=== PATIENT | female | born 1995 | race African-American/Black ===

== ENCOUNTER 2016-09-27 20:43 | Emergency (ER) | payer MEDICAID ==
[~2016-09-27] VITALS: Ht 162.6 cm; Wt 61.0 kg
[~2016-09-27 20:43] MED LIST: CARB200T; DIVAL250 PO; TEGRETOL; ZONISAMIDE
[2016-09-27] MEDS ORDERED: SODIUM CHLORIDE 0.9% 1,000 ML IV ONE (21:14)
[2016-09-27] MEDS ORDERED: LEVETIRACETAM 500MG PREMIX 100 ML IV ONE (21:15)
[2016-09-27 21:20] VITALS: BP 104/58
[2016-09-27 21:56] LABS: BASOPHILS % 0.2 % (0.0-2.0); EOSINOPHILS % 0.1 % (0.0-5.0); HEMATOCRIT. 36.9 % (36.0-48.0); HEMOGLOBIN. 12.2 g/dL (12.0-16.0); LYMPHOCYTES % 12.8 % (20.0-50.0); MEAN CORPUSCULAR HEMOGLOBIN 28.7 pg (28.0-32.0); MEAN PLATELET VOLUME 8.5 fl (7.4-10.4); MONOCYTES % 7.3 % (2.0-8.0); NEUTROPHILS % 79.6 % (40.0-76.0); PLATELET 208 x1000/uL (130-400); RED BLOOD CELL COUNT 4.24 mill/uL (4.2-5.4); RED CELL DISTRIBUTION WIDTH 13.3 % (11.6-14.6); WHITE BLOOD COUNT 21.6 x1000/uL (4.5-11.0)
[2016-09-27 22:03] LABS: HCG SCREEN NEGATIVE
[2016-09-27 22:18] LABS: ALANINE AMINOTRANSFERASE 27 IU/L (13-61); ALBUMIN 3.7 g/dL (3.4-5.0); ANION GAP 12; CALCIUM 8.4 mg/dL (8.5-10.1); CARBAMAZEPINE 4.5 ug/mL (4-12); CARBON DIOXIDE 28 mEq/L (21-32); CHLORIDE 104 mEq/L (98-107); CREATINE KINASE 145 IU/L (26-192); ETHANOL BLOOD < 10 mg/dL; INDEX HEMOLYSI 1 (1-3); INDEX ICTERIC 1 (1-4); INDEX LIPEMIC 1 (1-3); TROPONIN I < 0.02 ng/mL (0.00-0.04); UREA NITROGEN BLOOD 7 mg/dL (7-21); eGFR > 60 mL/min (>60)
[2016-09-27 22:40] LABS: PHENOBARBITAL < 2.1 ug/mL (15.0-40.0); PHENYTOIN 0.4 ug/mL (10-20); VALPROIC ACID 4.4 ug/mL (50-100)
[2016-09-27 23:16] LABS: THYROID STIMULATING HORMONE 0.31 uIU/mL (0.36-3.74)
[2016-09-27 23:31] LABS: CLARITY URINE CLEAR (CLEAR); COLOR URINE YELLOW (YELLOW); GLUCOSE URINE NEGATIVE (NEGATIVE); KETONES URINE 2+ (NEGATIVE); LEUKOCYTE ESTERASE URINE NEGATIVE (NEGATIVE); NITRITE URINE NEGATIVE (NEGATIVE); OCCULT BLOOD URINE NEGATIVE (NEGATIVE); PROTEIN URINE NEGATIVE (NEGATIVE); SPECIFIC GRAVITY URINE 1.014 (1.005-1.030)
[2016-09-28 00:03] LABS: *AMPHETAMINES SCREEN URINE NEGATIVE (NEGATIVE); *BARBITURATES SCREEN URINE NEGATIVE (NEGATIVE); *BENZODIAZEPINES SCREEN URINE NEGATIVE (NEGATIVE); *COCAINE SCREEN URINE NEGATIVE (NEGATIVE); CANNABINOID URINE SCREEN PRESUMTIVE POSITIVE (NEGATIVE); ECSTASY MDMA SCREEN URINE NEGATIVE (NEGATIVE); METHADONE URINE SCREEN NEGATIVE (NEGATIVE); OPIATES URINE SCREEN NEGATIVE (NEGATIVE); PHENCYCLIDINE URINE SCREEN NEGATIVE (NEGATIVE)
== END 2016-09-28 01:44 | disposition home or self-care (01) ==
LOC: ER 20:44
DX: R56.9 Unspecified convulsions (principal); N39.0 Urinary tract infection, site not specified; F12.10 Cannabis abuse, uncomplicated; F17.200 Nicotine dependence, unspecified, uncomplicated
CPT/HCPCS: 36415; 80053; 80156; 80165; 80184; 80185; 80305; 81003; 82550; 84443; 84484; 84703; 85025; 96365; 99284; 99406; G0482; J1953; J7030; Z7610

== ENCOUNTER 2016-09-29 18:24 | Emergency (ER) | payer MEDICAID ==
[~2016-09-29] VITALS: Ht 157.5 cm; Wt 59.0 kg
[2016-09-29 20:51] VITALS: BP 111/68
== END 2016-09-30 07:26 | disposition home or self-care (01) ==
LOC: ER 18:24
DX: N39.0 Urinary tract infection, site not specified (principal); F12.10 Cannabis abuse, uncomplicated; R56.9 Unspecified convulsions
CPT/HCPCS: 99283

== ENCOUNTER 2016-12-16 01:39 | Emergency (ER) | payer MEDICAID ==
[~2016-12-16] VITALS: Ht 167.6 cm; Wt 59.0 kg
[~2016-12-16 01:39] MED LIST changes: -CARB200T; +CARB200T PO; +FOLI-43 PO; +LAMO100T PO; +OCD PO
[2016-12-16] MEDS ORDERED: IBUPROFEN 600MG TABLET PO ONE (07:00)
[2016-12-16 08:59] VITALS: BP 104/52
== END 2016-12-16 09:33 | disposition home or self-care (01) ==
LOC: ER 01:52
DX: R51 Headache (principal); R56.9 Unspecified convulsions; F17.200 Nicotine dependence, unspecified, uncomplicated
CPT/HCPCS: 81025; 99283

== ENCOUNTER 2017-04-07 04:08 | Inpatient (IN) | payer MEDICAID ==
[~2017-04-07] VITALS: Ht 160 cm; Wt 59.0 kg
[2017-04-07 07:48] LABS: BASOPHILS % 0.7 % (0.0-2.0); EOSINOPHILS % 0.7 % (0.0-5.0); HEMATOCRIT. 38.2 % (36.0-48.0); HEMOGLOBIN. 12.8 g/dL (12.0-16.0); LYMPHOCYTES % 17.4 % (20.0-50.0); MEAN CORPUSCULAR HEMOGLOBIN 29.3 pg (28.0-32.0); MEAN CORPUSCULAR VOLUME 87.8 fL (81.0-99.0); NEUTROPHILS % 71.2 % (40.0-76.0); PLATELET 230 x1000/uL (130-400); RED BLOOD CELL COUNT 4.36 mill/uL (4.2-5.4); RED CELL DISTRIBUTION WIDTH 13.3 % (11.6-14.6)
[2017-04-07 07:59] LABS: HCG SCREEN NEGATIVE
[2017-04-07 08:05] LABS: CARBON DIOXIDE 27 mEq/L (21-32); CHLORIDE 104 mEq/L (98-107)
[2017-04-07 08:07] LABS: CARBAMAZEPINE < 0.5 ug/mL (4-12)
[2017-04-07] MEDS ORDERED: CARBAMAZEPINE 200MG TABLET PO ONE (08:15)
[2017-04-07] MEDS ORDERED: LAMOTRIGINE 100MG TABLET PO SCH (14:45)
[2017-04-07] MEDS ORDERED: LORAZEPAM 2MG/ML CPJ IV ONE (15:00)
[2017-04-07] MEDS ORDERED: MAGNESIUM/ALUMINUM HYDROXIDE/SIMETHICONE 30ML UDC PO PRN (15:45)
[2017-04-07] MEDS ORDERED: NA PHOS,M-B/NA PHOS,DI-BA ENEMA 118ML PR PRN (15:45)
[2017-04-07] MEDS ORDERED: ONDANSETRON HCL 4MG/2ML VIAL IV PRN (15:45)
[2017-04-07] MEDS ORDERED: CLONIDINE 0.1MG TABLET PO PRN (15:45)
[2017-04-07] MEDS ORDERED: LORAZEPAM 2MG/ML CPJ IV PRN (15:45)
[2017-04-07] MEDS ORDERED: NITROGLYCERIN 0.4MG TABLET SL SL PRN (15:45)
[2017-04-07] MEDS ORDERED: IPRATROPIUM/ALBUTEROL 0.5-3(2.5)MG/3ML NEB INH PRN (15:45)
[2017-04-07] MEDS ORDERED: KETOROLAC 15MG/ML VIAL IV PRN (15:45)
[2017-04-07] MEDS ORDERED: DOCUSATE SODIUM 100MG CAPSULE PO PRN (15:45)
[2017-04-07] MEDS ORDERED: ACETAMINOPHEN 325MG TABLET PO PRN (15:45)
[2017-04-07] MEDS ORDERED: DIPHENHYDRAMINE 50MG/ML VIAL IV PRN (15:45)
[2017-04-07 16:37] VITALS: BP 103/57
[2017-04-07 16:40] VITALS: BP 103/103
[2017-04-07 20:00] VITALS: BP 102/69
[2017-04-07] MEDS ORDERED: ZOLPIDEM TARTRATE 5MG TABLET PO PRN (21:00)
[2017-04-07] MEDS: CARBAMAZEPINE 200MG TABLET PO SCH (21:00)
[2017-04-07] MEDS: FAMOTIDINE 20MG/2ML VIAL IV SCH (22:32)
[2017-04-07] MEDS: LAMOTRIGINE 150MG TABLET PO SCH (22:33)
[2017-04-08] VITALS: BP 90/51
[2017-04-08 04:00] VITALS: BP 91/51
[2017-04-08 07:13] LABS: *AMPHETAMINES SCREEN URINE NEGATIVE (NEGATIVE); *BARBITURATES SCREEN URINE NEGATIVE (NEGATIVE); *BENZODIAZEPINES SCREEN URINE NEGATIVE (NEGATIVE); *COCAINE SCREEN URINE NEGATIVE (NEGATIVE); METHADONE URINE SCREEN NEGATIVE (NEGATIVE); OPIATES URINE SCREEN NEGATIVE (NEGATIVE); PHENCYCLIDINE URINE SCREEN NEGATIVE (NEGATIVE)
[2017-04-08 07:46] LABS: CANNABINOID URINE SCREEN PRESUMTIVE POSITIVE (NEGATIVE)
[2017-04-08 08:00] VITALS: BP 99/62
[2017-04-08] MEDS: LAMOTRIGINE 150MG TABLET PO SCH (08:52)
[2017-04-08] MEDS: CARBAMAZEPINE 200MG TABLET PO SCH ×2 (08:52→08:58)
[2017-04-08] MEDS: FAMOTIDINE 20MG/2ML VIAL IV SCH (08:53)
[2017-04-08] MEDS ORDERED: DIVALPROEX SODIUM 500MG ER TABLET PO SCH (09:00)
[2017-04-08 12:00] VITALS: BP 112/67
[2017-04-08 12:22] VITALS: BP 112/67
== END 2017-04-08 12:35 | disposition home or self-care (01) | DRG 53 ==
LOC: ER 04:08 → 5WST 14:38 → ENRESERV 15:20
PROVIDERS: ADMIT Internal Medicine; ATTEND Internal Medicine
DX: G40.909 Epilepsy, unspecified, not intractable, without status epilepticus (principal); F12.10 Cannabis abuse, uncomplicated; Z79.899 Other long term (current) drug therapy; T42.6X5A Adverse effect of other antiepileptic and sedative-hypnotic drugs, initial encounter; R62.50 Unspecified lack of expected normal physiological development in childhood; Z91.14 Patient's other noncompliance with medication regimen; Y92.89 Other specified places as the place of occurrence of the external cause
CPT/HCPCS: 36415; 80053; 80156; 80305; 83036; 84703; 85025; 99285; J2060; J3490

== ENCOUNTER 2017-04-08 22:36 | Emergency (ER) | payer MEDICAID ==
[~2017-04-08] VITALS: Ht 154.9 cm; Wt 50.0 kg
[~2017-04-08 22:36] MED LIST changes: -CARB200T PO
[2017-04-08 23:10] VITALS: BP 118/66
[2017-04-08] MEDS ORDERED: SODIUM CHLORIDE 0.9% 1,000 ML IV ONE (23:11)
[2017-04-08] MEDS ORDERED: LORAZEPAM 2MG/ML CPJ IV ONE (23:15)
[2017-04-08 23:34] LABS: BASOPHILS % 0.6 % (0.0-2.0); EOSINOPHILS % 0.7 % (0.0-5.0); HEMATOCRIT. 39.8 % (36.0-48.0); HEMOGLOBIN. 13.5 g/dL (12.0-16.0); LYMPHOCYTES % 17.3 % (20.0-50.0); MEAN CORPUSCULAR HEMOGLOBIN 29.7 pg (28.0-32.0); MEAN CORPUSCULAR VOLUME 87.7 fL (81.0-99.0); MEAN PLATELET VOLUME 7.7 fl (7.4-10.4); MONOCYTES % 10.7 % (2.0-8.0); NEUTROPHILS % 70.7 % (40.0-76.0); PLATELET 248 x1000/uL (130-400); RED BLOOD CELL COUNT 4.53 mill/uL (4.2-5.4)
[2017-04-08 23:43] LABS: AMMONIA 18 uMol/L (<32)
[2017-04-08 23:50] LABS: CARBAMAZEPINE 2.1 ug/mL (4-12); CARBON DIOXIDE 26 mEq/L (21-32); CHLORIDE 102 mEq/L (98-107); CREATINE KINASE 115 IU/L (26-192); ETHANOL BLOOD < 10 mg/dL; TROPONIN I < 0.02 ng/mL (0.00-0.04)
[2017-04-09] MEDS ORDERED: VALPROIC ACID 250MG CAPSULE PO SCH (01:30)
[2017-04-09] MEDS ORDERED: KCL 20MEQ/100ML PREMIX 100 ML IV NR (01:30)
[2017-04-09] MEDS ORDERED: POTASSIUM BICARB/CIT ACID 25 MEQ TABLET.EFF PO ONE (01:30)
[2017-04-09] MEDS ORDERED: CARBAMAZEPINE 200MG TABLET PO SCH (01:30)
[2017-04-09] MEDS ORDERED: METHYLPREDNISOLONE SOD SUCC 125 MG/2 ML VIAL IV ONE (03:15)
[2017-04-09] MEDS ORDERED: FAMOTIDINE 20MG/2ML VIAL IV ONE (03:15)
[2017-04-09] MEDS ORDERED: DIPHENHYDRAMINE 50MG/ML VIAL IV ONE (03:15)
== END 2017-04-09 04:48 | disposition home or self-care (01) ==
LOC: ER 22:48
DX: T78.40XA Allergy, unspecified, initial encounter (principal); E87.6 Hypokalemia; R56.9 Unspecified convulsions; R22.0 Localized swelling, mass and lump, head; F17.200 Nicotine dependence, unspecified, uncomplicated
CPT/HCPCS: 36415; 70450; 71010; 80053; 80156; 80165; 82140; 82550; 84443; 84484; 85025; 96361; 96374; 99285; G0482; J2060; J3480; J7030

== ENCOUNTER 2018-05-23 13:56 | Emergency (ER) | payer MEDICAID ==
[~2018-05-23] VITALS: Ht 152.4 cm; Wt 55.0 kg
[~2018-05-23 13:56] MED LIST changes: -FOLI-43 PO; -OCD PO; -TEGRETOL; -ZONISAMIDE
[2018-05-23 17:49] LABS: CLARITY URINE CLEAR (CLEAR); COLOR URINE YELLOW (YELLOW); KETONES URINE 1+ (NEGATIVE); LEUKOCYTE ESTERASE URINE 1+ (NEGATIVE); NITRITE URINE NEGATIVE (NEGATIVE); OCCULT BLOOD URINE TRACE (NEGATIVE); PROTEIN URINE 1+ (NEGATIVE); SPECIFIC GRAVITY URINE 1.018 (1.005-1.030)
[2018-05-23 18:15] VITALS: BP 123/61
== END 2018-05-23 18:16 | disposition home or self-care (01) ==
LOC: ER 13:56
DX: N39.0 Urinary tract infection, site not specified (principal); F17.200 Nicotine dependence, unspecified, uncomplicated; Z79.899 Other long term (current) drug therapy
CPT/HCPCS: 81025; 87077; 87186; 99283

== ENCOUNTER 2018-08-27 15:16 | Emergency (ER) | payer MEDICAID ==
[~2018-08-27] VITALS: Ht 154.9 cm; Wt 52.0 kg
[2018-08-27 16:12] VITALS: BP 100/55
== END 2018-08-28 00:03 | disposition left against medical advice (07) ==
LOC: ER 15:16
DX: R10.13 Epigastric pain (principal); Z53.21 Procedure and treatment not carried out due to patient leaving prior to being seen by health care provider

== ENCOUNTER 2018-09-06 02:26 | Emergency (ER) | payer MEDICAID ==
[~2018-09-06] VITALS: Ht 162.6 cm; Wt 77.0 kg
[2018-09-06] MEDS ORDERED: SODIUM CHLORIDE 0.9% 1,000 ML IV ONE (02:44)
[2018-09-06] MEDS ORDERED: MORPHINE SULFATE 4 MG/ML CPJ (NOT FOR IM USE) IV STA (02:44)
[2018-09-06] MEDS ORDERED: ONDANSETRON HCL 4MG/2ML INJ IV STA (02:44)
[2018-09-06] MEDS ORDERED: LEVETIRACETAM 500MG PREMIX 100 ML IV ONE (02:45)
[2018-09-06] MEDS ORDERED: OLANZAPINE 10 MG/VIAL IM ONE (02:45)
[2018-09-06 03:48] LABS: CHLORIDE 107 mEq/L (98-107)
[2018-09-06 03:49] LABS: BASOPHILS % 0.5 % (0.0-2.0); EOSINOPHILS % 1.6 % (0.0-5.0); HEMATOCRIT. 35.6 % (36.0-48.0); HEMOGLOBIN. 11.7 g/dL (12.0-16.0); LYMPHOCYTES % 14.6 % (20.0-50.0); MEAN CORPUSCULAR HEMOGLOBIN 29.2 pg (28.0-32.0); MEAN CORPUSCULAR VOLUME 88.5 fL (81.0-99.0); MEAN PLATELET VOLUME 7.9 fl (7.4-10.4); MONOCYTES % 10.7 % (2.0-8.0); NEUTROPHILS % 72.6 % (40.0-76.0); PLATELET 273 x1000/uL (130-400); RED BLOOD CELL COUNT 4.03 mill/uL (4.2-5.4); RED CELL DISTRIBUTION WIDTH 12.3 % (11.6-14.6)
[2018-09-06 03:52] LABS: ETHANOL BLOOD < 10 mg/dL
[2018-09-06 05:17] LABS: *COCAINE SCREEN URINE NEGATIVE (NEGATIVE); METHADONE URINE SCREEN NEGATIVE (NEGATIVE)
[2018-09-06 05:18] LABS: *AMPHETAMINES SCREEN URINE NEGATIVE (NEGATIVE); *BARBITURATES SCREEN URINE NEGATIVE (NEGATIVE); PHENCYCLIDINE URINE SCREEN NEGATIVE (NEGATIVE)
[2018-09-06 05:39] LABS: *BENZODIAZEPINES SCREEN URINE PRESUMTIVE POSITIVE (NEGATIVE); CANNABINOID URINE SCREEN PRESUMTIVE POSITIVE (NEGATIVE); OPIATES URINE SCREEN PRESUMTIVE POSITIVE (NEGATIVE)
[2018-09-06 09:08] VITALS: BP 106/70
== END 2018-09-06 09:11 | disposition home or self-care (01) ==
LOC: ER 02:41
DX: G40.909 Epilepsy, unspecified, not intractable, without status epilepticus (principal); F12.10 Cannabis abuse, uncomplicated
CPT/HCPCS: 36415; 80053; 80165; 80305; 80320; 85025; 96365; 96372; 96375; 99283; J1953; J2270; J2405; J3490; J7030; Z7610; G0480

== ENCOUNTER 2019-04-18 08:36 | Emergency (ER) | payer MEDICAID ==
[~2019-04-18] VITALS: Ht 162.6 cm; Wt 61.0 kg
[2019-04-18] MEDS ORDERED: KETOROLAC 30MG/ML VIAL IV STA (09:19)
[2019-04-18] MEDS ORDERED: METOCLOPRAMIDE HCL 10MG/2ML VIAL IV ONE (09:30)
[2019-04-18 09:31] LABS: BASOPHILS % 0.5 % (0.0-2.0); HEMOGLOBIN. 12.6 g/dL (12.0-16.0); LYMPHOCYTES % 21.1 % (20.0-50.0); MEAN CORPUSCULAR HEMOGLOBIN 30.4 pg (28.0-32.0); MEAN CORPUSCULAR VOLUME 91.6 fL (81.0-99.0); MEAN PLATELET VOLUME 8.5 fl (7.4-10.4); MONOCYTES % 9.3 % (2.0-8.0); NEUTROPHILS % 68.1 % (40.0-76.0); PLATELET 208 x1000/uL (130-400); RED BLOOD CELL COUNT 4.15 mill/uL (4.2-5.4); RED CELL DISTRIBUTION WIDTH 12.7 % (11.6-14.6)
[2019-04-18 09:36] LABS: CHLORIDE 109 mEq/L (98-107)
[2019-04-18 09:41] LABS: ETHANOL BLOOD < 10 mg/dL
[2019-04-18 09:51] LABS: CARBAMAZEPINE < 0.5 ug/mL (4-12)
[2019-04-18 09:53] LABS: CLARITY URINE CLOUDY (CLEAR); COLOR URINE YELLOW (YELLOW); KETONES URINE TRACE (NEGATIVE); LEUKOCYTE ESTERASE URINE 1+ (NEGATIVE); NITRITE URINE NEGATIVE (NEGATIVE); OCCULT BLOOD URINE NEGATIVE (NEGATIVE); PH URINE 6.5 (4.5-8.0); PROTEIN URINE TRACE (NEGATIVE); SPECIFIC GRAVITY URINE 1.013 (1.005-1.030)
[2019-04-18 10:08] LABS: *AMPHETAMINES SCREEN URINE NEGATIVE (NEGATIVE); *BARBITURATES SCREEN URINE NEGATIVE (NEGATIVE); *COCAINE SCREEN URINE NEGATIVE (NEGATIVE); METHADONE URINE SCREEN NEGATIVE (NEGATIVE); OPIATES URINE SCREEN NEGATIVE (NEGATIVE)
[2019-04-18 10:09] LABS: PHENCYCLIDINE URINE SCREEN NEGATIVE (NEGATIVE)
[2019-04-18 10:26] LABS: *BENZODIAZEPINES SCREEN URINE PRESUMTIVE POSITIVE (NEGATIVE); CANNABINOID URINE SCREEN PRESUMTIVE POSITIVE (NEGATIVE)
[2019-04-18] MEDS ORDERED: CARBAMAZEPINE 100MG TABLET CHEW PO ONE (11:00)
[2019-04-18] MEDS ORDERED: CARBAMAZEPINE 200MG TABLET PO NR (11:30)
[2019-04-18 13:55] VITALS: BP 119/84
== END 2019-04-18 13:56 | disposition home or self-care (01) ==
LOC: ER 08:36
DX: G40.909 Epilepsy, unspecified, not intractable, without status epilepticus (principal); F12.10 Cannabis abuse, uncomplicated
CPT/HCPCS: 36415; 80053; 80156; 80165; 80305; 80320; 81003; 85025; 96374; 96375; 99283; J1885; J2765; Z7610; G0480

== ENCOUNTER 2019-08-28 12:46 | Emergency (ER) | payer MEDICAID ==
[~2019-08-28] VITALS: Ht 165.1 cm; Wt 60.0 kg
[~2019-08-28 12:46] MED LIST changes: -LAMO100T PO; +LAMO100T16 PO
[2019-08-28] MEDS ORDERED: PHENYTOIN SODIUM 500 MG in SODIUM CHLORIDE 0.9% 100 ML IV ONE (13:45)
[2019-08-28 13:51] LABS: BASOPHILS % 0.8 % (0.0-2.0); EOSINOPHILS % 0.2 % (0.0-5.0); HEMATOCRIT. 40.7 % (36.0-48.0); HEMOGLOBIN. 13.8 g/dL (12.0-16.0); LYMPHOCYTES % 10.2 % (20.0-50.0); MEAN CORPUSCULAR HEMOGLOBIN 30.7 pg (28.0-32.0); MEAN CORPUSCULAR VOLUME 90.7 fL (81.0-99.0); MEAN PLATELET VOLUME 8.7 fl (7.4-10.4); MONOCYTES % 5.5 % (2.0-8.0); NEUTROPHILS % 83.3 % (40.0-76.0); PLATELET 187 x1000/uL (130-400); RED BLOOD CELL COUNT 4.49 mill/uL (4.2-5.4); RED CELL DISTRIBUTION WIDTH 12.4 % (11.6-14.6)
[2019-08-28 13:58] LABS: CHLORIDE 107 mEq/L (98-107)
[2019-08-28 14:17] LABS: ETHANOL BLOOD < 10 mg/dL
[2019-08-28] MEDS ORDERED: PHENYTOIN SODIUM EXTENDED 100MG CAPSULE PO ONE (16:45)
[2019-08-28 19:25] VITALS: BP 110/69
== END 2019-08-28 19:25 | disposition home or self-care (01) ==
LOC: ER 13:22
DX: R56.9 Unspecified convulsions (principal); I10 Essential (primary) hypertension; F12.10 Cannabis abuse, uncomplicated
CPT/HCPCS: 36415; 70450; 80053; 80185; 80320; 85025; 93005; 96365; 99285; J1165; J7050; G0480

== ENCOUNTER 2019-12-30 02:49 | Emergency (ER) | payer MEDICAID ==
[~2019-12-30] VITALS: Ht 152.4 cm; Wt 53.0 kg
[~2019-12-30 02:49] MED LIST changes: +PHEN100C4 PO
[2019-12-30] MEDS ORDERED: DIPHENHYDRAMINE 25MG CAPSULE PO ONE (03:30)
[2019-12-30] MEDS ORDERED: KETOROLAC 60MG/2ML VIAL IM ONE (05:00)
[2019-12-30 05:14] VITALS: BP 100/50
== END 2019-12-30 05:22 | disposition home or self-care (01) ==
LOC: ER 02:49
DX: R07.89 Other chest pain (principal); R56.9 Unspecified convulsions; Z98.890 Other specified postprocedural states; Z79.899 Other long term (current) drug therapy
CPT/HCPCS: 71045; 81025; 93005; 96372; 99283; J1885; Q0163

== ENCOUNTER 2020-01-04 02:00 | Emergency (ER) | payer MEDICAID ==
[~2020-01-04] VITALS: Ht 160 cm; Wt 53.0 kg
[2020-01-04] MEDS ORDERED: MAGNESIUM/ALUMINUM HYDROXIDE/SIMETHICONE 30ML UDC PO STA (03:07)
[2020-01-04] MEDS ORDERED: SODIUM CHLORIDE 0.9% 1,000 ML IV ONE (03:07)
[2020-01-04] MEDS ORDERED: ONDANSETRON HCL 4MG/2ML INJ IV STA (03:07)
[2020-01-04] MEDS ORDERED: KETOROLAC 30MG/ML VIAL IV STA (03:07)
[2020-01-04 04:09] LABS: CHLORIDE 105 mEq/L (98-107)
[2020-01-04 04:37] LABS: EOSINOPHILS % 3.5 % (0.0-5.0); HEMATOCRIT. 35.4 % (36.0-48.0); HEMOGLOBIN. 12.1 g/dL (12.0-16.0); LYMPHOCYTES % 39.2 % (20.0-50.0); MEAN CORPUSCULAR HEMOGLOBIN 31.9 pg (28.0-32.0); MEAN CORPUSCULAR VOLUME 93.6 fL (81.0-99.0); MEAN PLATELET VOLUME 9.4 fl (7.4-10.4); NEUTROPHILS % 42.3 % (40.0-76.0); PLATELET 156 x1000/uL (130-400); RED BLOOD CELL COUNT 3.79 mill/uL (4.2-5.4); RED CELL DISTRIBUTION WIDTH 12.8 % (11.6-14.6)
[2020-01-04 05:00] VITALS: BP 95/56
== END 2020-01-04 05:41 | disposition home or self-care (01) ==
LOC: ER 02:00
DX: K80.20 Calculus of gallbladder without cholecystitis without obstruction (principal); F17.290 Nicotine dependence, other tobacco product, uncomplicated; R10.13 Epigastric pain
CPT/HCPCS: 36415; 76705; 80053; 83690; 85025; 96374; 96375; 99284; J1885; J2405; J7030

== ENCOUNTER 2020-01-24 06:23 | Emergency (ER) | payer MEDICAID ==
[~2020-01-24] VITALS: Ht 162.6 cm; Wt 54.0 kg
[2020-01-24] MEDS ORDERED: ACETAMINOPHEN 325MG TABLET PO STA (07:36)
[2020-01-24] MEDS ORDERED: SODIUM CHLORIDE 0.9% 1,000 ML IV ONE (07:36)
[2020-01-24 07:58] LABS: BASOPHILS % 0.9 % (0.0-2.0); HEMATOCRIT. 40.5 % (36.0-48.0); HEMOGLOBIN. 13.7 g/dL (12.0-16.0); LYMPHOCYTES % 37.3 % (20.0-50.0); MEAN CORPUSCULAR HEMOGLOBIN 31.2 pg (28.0-32.0); MEAN CORPUSCULAR VOLUME 92.1 fL (81.0-99.0); MEAN PLATELET VOLUME 9.2 fl (7.4-10.4); MONOCYTES % 9.5 % (2.0-8.0); NEUTROPHILS % 50.3 % (40.0-76.0); PLATELET 168 x1000/uL (130-400); RED CELL DISTRIBUTION WIDTH 12.8 % (11.6-14.6)
[2020-01-24 08:00] LABS: CHLORIDE 107 mEq/L (98-107)
[2020-01-24 08:55] VITALS: BP 117/68
[2020-01-24] MEDS ORDERED: ONDANSETRON HCL 4MG/2ML INJ IV ONE (09:00)
[2020-01-24 09:14] LABS: HCG SCREEN NEGATIVE
[2020-01-24] MEDS ORDERED: ONDANSETRON 4MG ODT PO ONE (09:15)
== END 2020-01-24 09:22 | disposition home or self-care (01) ==
LOC: ER 06:23
DX: G40.909 Epilepsy, unspecified, not intractable, without status epilepticus (principal); Z88.8 Allergy status to other drugs, medicaments and biological substances
CPT/HCPCS: 36415; 80053; 80165; 80185; 84703; 85025; 93005; 99284; J7030; Q0162

== ENCOUNTER 2021-05-28 18:01 | Emergency (ER) | payer MEDICAID ==
[~2021-05-28] VITALS: Ht 165.1 cm; Wt 61.0 kg
[2021-05-28] MEDS ORDERED: LORAZEPAM 0.5MG TABLET PO ONE (18:45)
[2021-05-28 19:46] LABS: BASOPHILS % 0.8 % (0.0-2.0); EOSINOPHILS % 1.3 % (0.0-5.0); HEMATOCRIT. 38.4 % (36.0-48.0); HEMOGLOBIN. 12.7 g/dL (12.0-16.0); LYMPHOCYTES % 23.9 % (20.0-50.0); MEAN CORPUSCULAR HEMOGLOBIN 30.4 pg (28.0-32.0); MEAN PLATELET VOLUME 8.1 fl (7.4-10.4); MONOCYTES % 10.5 % (2.0-8.0); NEUTROPHILS % 63.5 % (40.0-76.0); PLATELET 184 x1000/uL (130-400); RED BLOOD CELL COUNT 4.17 mill/uL (4.2-5.4); RED CELL DISTRIBUTION WIDTH 13.8 % (11.6-14.6)
[2021-05-28 19:53] LABS: CHLORIDE 107 mEq/L (98-107)
[2021-05-28 20:01] LABS: HCG SCREEN NEGATIVE
[2021-05-28 21:30] VITALS: BP 110/65
[2021-05-28] MEDS ORDERED: DIVA500T3 MT (21:42)
[2021-05-28] MEDS ORDERED: LAMO100T16 MT (21:42)
== END 2021-05-28 21:50 | disposition home or self-care (01) ==
LOC: ER 18:01
DX: G40.909 Epilepsy, unspecified, not intractable, without status epilepticus (principal); Z88.8 Allergy status to other drugs, medicaments and biological substances
CPT/HCPCS: 36415; 80053; 80165; 84703; 85025; 99283

== ENCOUNTER 2021-06-15 02:19 | Emergency (ER) | payer MEDICAID ==
[~2021-06-15] VITALS: Ht 167.6 cm; Wt 65.0 kg
[~2021-06-15 02:19] MED LIST changes: +DIVA500T3 MT; +LAMO100T16 MT
[2021-06-15] MEDS ORDERED: IBUPROFEN 400MG TABLET PO ONE (03:15)
[2021-06-15 03:22] LABS: BASOPHILS % 0.6 % (0.0-2.0); EOSINOPHILS % 1.8 % (0.0-5.0); HEMATOCRIT. 37.5 % (36.0-48.0); HEMOGLOBIN. 12.3 g/dL (12.0-16.0); LYMPHOCYTES % 28.9 % (20.0-50.0); MEAN CORPUSCULAR HEMOGLOBIN 30.5 pg (28.0-32.0); MEAN CORPUSCULAR VOLUME 92.8 fL (81.0-99.0); MEAN PLATELET VOLUME 8.3 fl (7.4-10.4); MONOCYTES % 10.5 % (2.0-8.0); NEUTROPHILS % 58.2 % (40.0-76.0); PLATELET 179 x1000/uL (130-400); RED BLOOD CELL COUNT 4.04 mill/uL (4.2-5.4); RED CELL DISTRIBUTION WIDTH 13.6 % (11.6-14.6)
[2021-06-15 03:29] LABS: CHLORIDE 104 mEq/L (98-107)
[2021-06-15 05:00] VITALS: BP 110/60
== END 2021-06-15 05:05 | disposition home or self-care (01) ==
LOC: ER 02:19
DX: G40.909 Epilepsy, unspecified, not intractable, without status epilepticus (principal); I10 Essential (primary) hypertension; M79.18 Myalgia, other site
CPT/HCPCS: 36415; 80053; 80165; 85025; 99283

== ENCOUNTER 2021-07-11 02:01 | Emergency (ER) | payer MEDICAID ==
[~2021-07-11] VITALS: Ht 170.2 cm; Wt 651.0 kg
[2021-07-11 02:45] VITALS: BP 130/65
[2021-07-11 03:09] LABS: BASOPHILS % 0.7 % (0.0-2.0); EOSINOPHILS % 0.4 % (0.0-5.0); HEMATOCRIT. 35.1 % (36.0-48.0); LYMPHOCYTES % 14.3 % (20.0-50.0); MEAN CORPUSCULAR HEMOGLOBIN 30.8 pg (28.0-32.0); MEAN CORPUSCULAR VOLUME 89.7 fL (81.0-99.0); MEAN PLATELET VOLUME 8.3 fl (7.4-10.4); MONOCYTES % 11.8 % (2.0-8.0); NEUTROPHILS % 72.8 % (40.0-76.0); PLATELET 198 x1000/uL (130-400); RED BLOOD CELL COUNT 3.91 mill/uL (4.2-5.4)
[2021-07-11 03:17] LABS: CHLORIDE 104 mEq/L (98-107)
[2021-07-11 03:21] LABS: ETHANOL BLOOD < 10 mg/dL
[2021-07-11 07:13] LABS: *AMPHETAMINES SCREEN URINE NEGATIVE (NEGATIVE); *BARBITURATES SCREEN URINE NEGATIVE (NEGATIVE); *BENZODIAZEPINES SCREEN URINE NEGATIVE (NEGATIVE); *COCAINE SCREEN URINE NEGATIVE (NEGATIVE); METHADONE URINE SCREEN NEGATIVE (NEGATIVE); OPIATES URINE SCREEN NEGATIVE (NEGATIVE); PHENCYCLIDINE URINE SCREEN NEGATIVE (NEGATIVE)
[2021-07-11 07:27] LABS: CANNABINOID URINE SCREEN PRESUMTIVE POSITIVE (NEGATIVE)
== END 2021-07-11 06:15 | disposition home or self-care (01) ==
LOC: ER 02:38
DX: F12.10 Cannabis abuse, uncomplicated (principal); R00.2 Palpitations; G40.909 Epilepsy, unspecified, not intractable, without status epilepticus; Z20.822 Contact with and (suspected) exposure to COVID-19; Z88.8 Allergy status to other drugs, medicaments and biological substances
CPT/HCPCS: 36415; 71045; 80053; 80305; 80320; 83880; 84484; 85025; 87426; 93005; 99285; G0480

== ENCOUNTER 2021-08-23 19:08 | Emergency (ER) | payer MEDICAID ==
[~2021-08-23] VITALS: Ht 160 cm; Wt 52.0 kg
[2021-08-23 19:48] LABS: CLARITY URINE CLEAR (CLEAR); COLOR URINE YELLOW (YELLOW); KETONES URINE NEGATIVE (NEGATIVE); LEUKOCYTE ESTERASE URINE NEGATIVE (NEGATIVE); NITRITE URINE NEGATIVE (NEGATIVE); OCCULT BLOOD URINE 1+ (NEGATIVE); PH URINE 6.5 (4.5-8.0); PROTEIN URINE NEGATIVE (NEGATIVE); SPECIFIC GRAVITY URINE 1.008 (1.005-1.030); UROBILINOGEN URINE 0.2 E.U./dL (0.2-1.0)
[2021-08-23 20:00] LABS: *BARBITURATES SCREEN URINE NEGATIVE (NEGATIVE); *BENZODIAZEPINES SCREEN URINE NEGATIVE (NEGATIVE); *COCAINE SCREEN URINE NEGATIVE (NEGATIVE)
[2021-08-23 20:01] LABS: METHADONE URINE SCREEN NEGATIVE (NEGATIVE); OPIATES URINE SCREEN NEGATIVE (NEGATIVE); PHENCYCLIDINE URINE SCREEN NEGATIVE (NEGATIVE)
[2021-08-23 20:16] LABS: *AMPHETAMINES SCREEN URINE PRESUMTIVE POSITIVE (NEGATIVE); CANNABINOID URINE SCREEN PRESUMTIVE POSITIVE (NEGATIVE)
[2021-08-23 20:56] LABS: BASOPHILS % 0.4 % (0.0-2.0); EOSINOPHILS % 1.8 % (0.0-5.0); HEMATOCRIT. 34.8 % (36.0-48.0); HEMOGLOBIN. 11.6 g/dL (12.0-16.0); LYMPHOCYTES % 14.4 % (20.0-50.0); MEAN CORPUSCULAR VOLUME 90.3 fL (81.0-99.0); MEAN PLATELET VOLUME 8.3 fl (7.4-10.4); MONOCYTES % 11.8 % (2.0-8.0); NEUTROPHILS % 71.6 % (40.0-76.0); PLATELET 176 x1000/uL (130-400); RED BLOOD CELL COUNT 3.86 mill/uL (4.2-5.4); RED CELL DISTRIBUTION WIDTH 13.1 % (11.6-14.6)
[2021-08-23 21:03] LABS: CHLORIDE 105 mEq/L (98-107)
[2021-08-23 21:06] LABS: ETHANOL BLOOD < 10 mg/dL
[2021-08-23] MEDS ORDERED: LAMOTRIGINE 25MG TABLET PO SCH (22:30)
[2021-08-23 22:50] VITALS: BP 110/66
== END 2021-08-23 23:30 | disposition home or self-care (01) ==
LOC: ER 19:08
DX: R56.9 Unspecified convulsions (principal); F12.10 Cannabis abuse, uncomplicated; F15.10 Other stimulant abuse, uncomplicated; Z79.899 Other long term (current) drug therapy
CPT/HCPCS: 36415; 71045; 80053; 80305; 80320; 81003; 82542; 84484; 85025; 93005; 99285; G0480

== ENCOUNTER 2021-09-17 00:28 | Emergency (ER) | payer MEDICAID ==
[~2021-09-17] VITALS: Ht 160 cm; Wt 60.0 kg
[2021-09-17 01:26] VITALS: BP 112/68
== END 2021-09-17 01:27 | disposition home or self-care (01) ==
LOC: ER 00:28
DX: F12.10 Cannabis abuse, uncomplicated (principal); G40.909 Epilepsy, unspecified, not intractable, without status epilepticus; Z88.8 Allergy status to other drugs, medicaments and biological substances
CPT/HCPCS: 93005; 99283

== ENCOUNTER 2021-10-16 23:32 | Emergency (ER) | payer MEDICAID ==
[~2021-10-16] VITALS: Ht 154.9 cm; Wt 55.0 kg
[2021-10-17] MEDS ORDERED: VISCOUS LIDOCAINE 2% 15 ML UDC PO STA (00:03)
[2021-10-17] MEDS ORDERED: MAGNESIUM/ALUMINUM HYDROXIDE/SIMETHICONE 30ML UDC PO STA (00:03)
[2021-10-17 00:31] LABS: BASOPHILS % 0.6 % (0.0-2.0); EOSINOPHILS % 2.3 % (0.0-5.0); HEMATOCRIT. 34.6 % (36.0-48.0); HEMOGLOBIN. 11.6 g/dL (12.0-16.0); LYMPHOCYTES % 29.5 % (20.0-50.0); MEAN CORPUSCULAR HEMOGLOBIN 30.2 pg (28.0-32.0); MEAN CORPUSCULAR VOLUME 90.3 fL (81.0-99.0); MEAN PLATELET VOLUME 8.3 fl (7.4-10.4); MONOCYTES % 12.7 % (2.0-8.0); NEUTROPHILS % 54.9 % (40.0-76.0); PLATELET 149 x1000/uL (130-400); RED BLOOD CELL COUNT 3.83 mill/uL (4.2-5.4); RED CELL DISTRIBUTION WIDTH 13.4 % (11.6-14.6)
[2021-10-17 00:40] LABS: CHLORIDE 105 mEq/L (98-107)
[2021-10-17 00:59] LABS: CLARITY URINE CLEAR (CLEAR); COLOR URINE YELLOW (YELLOW); KETONES URINE NEGATIVE (NEGATIVE); LEUKOCYTE ESTERASE URINE 1+ (NEGATIVE); NITRITE URINE NEGATIVE (NEGATIVE); OCCULT BLOOD URINE NEGATIVE (NEGATIVE); PH URINE 6.5 (4.5-8.0); PROTEIN URINE NEGATIVE (NEGATIVE); SPECIFIC GRAVITY URINE 1.017 (1.005-1.030); UROBILINOGEN URINE 0.2 E.U./dL (0.2-1.0)
[2021-10-17 01:09] LABS: HCG SCREEN NEGATIVE
[2021-10-17] MEDS ORDERED: METR500T MT (02:17)
[2021-10-17] MEDS ORDERED: FAMO40TA70 MT (02:17)
[2021-10-17 02:40] VITALS: BP 110/68
== END 2021-10-17 02:41 | disposition home or self-care (01) ==
LOC: ER 23:32
DX: K29.00 Acute gastritis without bleeding (principal); A59.9 Trichomoniasis, unspecified; G40.909 Epilepsy, unspecified, not intractable, without status epilepticus
CPT/HCPCS: 36415; 80053; 81003; 84703; 85025; 93005; 99284

== ENCOUNTER 2021-11-03 00:57 | Emergency (ER) | payer MEDICAID ==
[~2021-11-03] VITALS: Ht 154.9 cm; Wt 62.0 kg
[~2021-11-03 00:57] MED LIST changes: +FAMO40TA70 MT; +METR500T MT
[2021-11-03] MEDS ORDERED: MORPHINE SULFATE 4 MG/ML CPJ (NOT FOR IM USE) IV STA (01:51)
[2021-11-03] MEDS ORDERED: ONDANSETRON HCL 4MG/2ML INJ IV STA (01:51)
[2021-11-03 02:24] LABS: CHLORIDE 103 mEq/L (98-107)
[2021-11-03 02:25] LABS: HCG SCREEN NEGATIVE
[2021-11-03 02:26] LABS: BASOPHILS % 0.5 % (0.0-2.0); EOSINOPHILS % 2.4 % (0.0-5.0); HEMATOCRIT. 40.8 % (36.0-48.0); HEMOGLOBIN. 13.9 g/dL (12.0-16.0); LYMPHOCYTES % 36.8 % (20.0-50.0); MEAN CORPUSCULAR HEMOGLOBIN 30.2 pg (28.0-32.0); MEAN PLATELET VOLUME 8.8 fl (7.4-10.4); NEUTROPHILS % 50.3 % (40.0-76.0); PLATELET 156 x1000/uL (130-400); RED BLOOD CELL COUNT 4.59 mill/uL (4.2-5.4); RED CELL DISTRIBUTION WIDTH 14.5 % (11.6-14.6)
[2021-11-03 06:53] LABS: CLARITY URINE CLEAR (CLEAR); COLOR URINE YELLOW (YELLOW); KETONES URINE TRACE (NEGATIVE); LEUKOCYTE ESTERASE URINE NEGATIVE (NEGATIVE); NITRITE URINE NEGATIVE (NEGATIVE); OCCULT BLOOD URINE 2+ (NEGATIVE); PH URINE 7.5 (4.5-8.0); PROTEIN URINE NEGATIVE (NEGATIVE); SPECIFIC GRAVITY URINE 1.014 (1.005-1.030); UROBILINOGEN URINE 0.2 E.U./dL (0.2-1.0)
[2021-11-03] MEDS ORDERED: FAMO-135 MT (11:54)
[2021-11-03 12:40] VITALS: BP 110/68
== END 2021-11-03 12:50 | disposition home or self-care (01) ==
LOC: ER 00:57
DX: R10.13 Epigastric pain (principal); Z79.899 Other long term (current) drug therapy; Z86.59 Personal history of other mental and behavioral disorders
CPT/HCPCS: 36415; 76700; 80053; 81003; 83690; 84703; 85025; 96374; 96375; 99284; J2270; J2405; Z7610

== ENCOUNTER 2021-12-26 11:08 | Emergency (ER) | payer MEDICAID ==
[~2021-12-26] VITALS: Ht 152.4 cm; Wt 54.0 kg
[~2021-12-26 11:08] MED LIST changes: +FAMO-135 MT
[2021-12-26] MEDS ORDERED: MAGNESIUM/ALUMINUM HYDROXIDE/SIMETHICONE 30ML UDC PO STA (11:28)
[2021-12-26] MEDS ORDERED: ONDANSETRON 4MG ODT PO ONE (12:15)
[2021-12-26 12:41] LABS: CLARITY URINE CLEAR (CLEAR); COLOR URINE YELLOW (YELLOW); KETONES URINE NEGATIVE (NEGATIVE); LEUKOCYTE ESTERASE URINE NEGATIVE (NEGATIVE); NITRITE URINE NEGATIVE (NEGATIVE); OCCULT BLOOD URINE NEGATIVE (NEGATIVE); PH URINE 8.5 (4.5-8.0); PROTEIN URINE NEGATIVE (NEGATIVE); SPECIFIC GRAVITY URINE 1.017 (1.005-1.030)
[2021-12-26 12:50] LABS: BASOPHILS % 0.4 % (0.0-2.0); HEMATOCRIT. 37.7 % (36.0-48.0); HEMOGLOBIN. 12.7 g/dL (12.0-16.0); LYMPHOCYTES % 11.6 % (20.0-50.0); MEAN CORPUSCULAR HEMOGLOBIN 30.8 pg (28.0-32.0); MEAN CORPUSCULAR VOLUME 91.6 fL (81.0-99.0); MEAN PLATELET VOLUME 8.6 fl (7.4-10.4); MONOCYTES % 10.3 % (2.0-8.0); NEUTROPHILS % 76.7 % (40.0-76.0); PLATELET 142 x1000/uL (130-400); RED BLOOD CELL COUNT 4.12 mill/uL (4.2-5.4); RED CELL DISTRIBUTION WIDTH 15.3 % (11.6-14.6)
[2021-12-26 12:57] LABS: CHLORIDE 101 mEq/L (98-107)
[2021-12-26 13:05] LABS: ETHANOL BLOOD < 10 mg/dL
[2021-12-26 13:06] LABS: HCG SCREEN NEGATIVE
[2021-12-26] MEDS ORDERED: ONDA4TAB50 MT (13:08)
[2021-12-26] MEDS ORDERED: OMEP40CA20 MT (13:08)
[2021-12-26 13:16] VITALS: BP 126/69
[2021-12-26 13:21] LABS: *AMPHETAMINES SCREEN URINE NEGATIVE (NEGATIVE); *BARBITURATES SCREEN URINE NEGATIVE (NEGATIVE); *BENZODIAZEPINES SCREEN URINE NEGATIVE (NEGATIVE); *COCAINE SCREEN URINE NEGATIVE (NEGATIVE); METHADONE URINE SCREEN NEGATIVE (NEGATIVE); OPIATES URINE SCREEN NEGATIVE (NEGATIVE); PHENCYCLIDINE URINE SCREEN NEGATIVE (NEGATIVE)
[2021-12-26 13:22] LABS: CANNABINOID URINE SCREEN PRESUMTIVE POSITIVE (NEGATIVE)
== END 2021-12-26 13:17 | disposition home or self-care (01) ==
LOC: ER 11:31
DX: R10.33 Periumbilical pain (principal); G40.909 Epilepsy, unspecified, not intractable, without status epilepticus
CPT/HCPCS: 36415; 80053; 80305; 80320; 81003; 83690; 84703; 85025; 93005; 99284; Q0162; G0480

== ENCOUNTER 2022-01-01 00:21 | Emergency (ER) | payer MEDICAID ==
[~2022-01-01] VITALS: Ht 162.6 cm; Wt 60.0 kg
[~2022-01-01 00:21] MED LIST changes: +OMEP40CA20 MT; +ONDA4TAB50 MT
[2022-01-01] MEDS ORDERED: MAGNESIUM/ALUMINUM HYDROXIDE/SIMETHICONE 30ML UDC PO ONE (00:45)
[2022-01-01] MEDS ORDERED: DICYCLOMINE 10 MG/5 ML ORAL SYR PO ONE (00:45)
[2022-01-01] MEDS ORDERED: VISCOUS LIDOCAINE 2% 15 ML UDC PO ONE (00:45)
[2022-01-01 00:58] LABS: BASOPHILS % 0.9 % (0.0-2.0); EOSINOPHILS % 2.2 % (0.0-5.0); HEMATOCRIT. 34.7 % (36.0-48.0); HEMOGLOBIN. 11.6 g/dL (12.0-16.0); MEAN CORPUSCULAR HEMOGLOBIN 30.6 pg (28.0-32.0); MEAN CORPUSCULAR VOLUME 91.9 fL (81.0-99.0); MEAN PLATELET VOLUME 8.3 fl (7.4-10.4); MONOCYTES % 14.4 % (2.0-8.0); NEUTROPHILS % 43.5 % (40.0-76.0); PLATELET 124 x1000/uL (130-400); RED BLOOD CELL COUNT 3.78 mill/uL (4.2-5.4); RED CELL DISTRIBUTION WIDTH 15.3 % (11.6-14.6)
[2022-01-01 01:04] LABS: CHLORIDE 103 mEq/L (98-107)
[2022-01-01 01:13] LABS: ETHANOL BLOOD < 10 mg/dL
[2022-01-01 02:02] LABS: CLARITY URINE CLEAR (CLEAR); COLOR URINE YELLOW (YELLOW); KETONES URINE NEGATIVE (NEGATIVE); LEUKOCYTE ESTERASE URINE NEGATIVE (NEGATIVE); NITRITE URINE NEGATIVE (NEGATIVE); OCCULT BLOOD URINE NEGATIVE (NEGATIVE); PROTEIN URINE NEGATIVE (NEGATIVE); SPECIFIC GRAVITY URINE 1.017 (1.005-1.030)
[2022-01-01 02:15] LABS: *AMPHETAMINES SCREEN URINE NEGATIVE (NEGATIVE); *BARBITURATES SCREEN URINE NEGATIVE (NEGATIVE); *BENZODIAZEPINES SCREEN URINE NEGATIVE (NEGATIVE); *COCAINE SCREEN URINE NEGATIVE (NEGATIVE); METHADONE URINE SCREEN NEGATIVE (NEGATIVE); OPIATES URINE SCREEN NEGATIVE (NEGATIVE); PHENCYCLIDINE URINE SCREEN NEGATIVE (NEGATIVE)
[2022-01-01 02:20] LABS: CANNABINOID URINE SCREEN PRESUMTIVE POSITIVE (NEGATIVE)
[2022-01-01 02:55] VITALS: BP 130/80
== END 2022-01-01 02:58 | disposition home or self-care (01) ==
LOC: ER 00:21
DX: G89.29 Other chronic pain (principal); R10.9 Unspecified abdominal pain; R56.9 Unspecified convulsions; F12.90 Cannabis use, unspecified, uncomplicated
CPT/HCPCS: 36415; 80053; 80305; 80320; 81003; 81025; 82962; 85025; 99283; 99284; G0480

== ENCOUNTER 2022-01-12 01:57 | Emergency (ER) | payer MEDICAID ==
[~2022-01-12] VITALS: Ht 162.6 cm; Wt 59.0 kg
[2022-01-12] MEDS ORDERED: LAMOTRIGINE 100MG TABLET PO STA (04:23)
[2022-01-12] MEDS ORDERED: DIVALPROEX SODIUM 250MG ER TABLET PO ONE (04:30)
[2022-01-12 05:30] VITALS: BP 111/74
[2022-01-12] MEDS ORDERED: NITR-87 MT (09:22)
== END 2022-01-12 05:38 | disposition home or self-care (01) ==
LOC: ER 01:57
DX: R56.9 Unspecified convulsions (principal); Z79.899 Other long term (current) drug therapy
CPT/HCPCS: 99283; Z7610

== ENCOUNTER 2022-01-12 05:49 | Emergency (ER) | payer MEDICAID ==
[~2022-01-12] VITALS: Ht 152.4 cm; Wt 54.0 kg
[2022-01-12 06:00] VITALS: BP 133/82
[2022-01-12 08:44] LABS: CLARITY URINE CLEAR (CLEAR); COLOR URINE DARK YELLOW (YELLOW); KETONES URINE 2+ (NEGATIVE); LEUKOCYTE ESTERASE URINE TRACE (NEGATIVE); NITRITE URINE NEGATIVE (NEGATIVE); OCCULT BLOOD URINE NEGATIVE (NEGATIVE); PROTEIN URINE 1+ (NEGATIVE); SPECIFIC GRAVITY URINE 1.024 (1.005-1.030)
[2022-01-12] MEDS ORDERED: NITR-87 MT (09:22)
== END 2022-01-12 09:40 | disposition home or self-care (01) ==
LOC: ER 05:49
DX: N39.0 Urinary tract infection, site not specified (principal); F17.200 Nicotine dependence, unspecified, uncomplicated; F12.10 Cannabis abuse, uncomplicated; Z86.59 Personal history of other mental and behavioral disorders; Z79.899 Other long term (current) drug therapy
CPT/HCPCS: 81003; 81025; 99283

== ENCOUNTER 2022-06-28 18:28 | Emergency (ER) | payer MEDICAID ==
[~2022-06-28] VITALS: Ht 152.4 cm; Wt 66.0 kg
[~2022-06-28 18:28] MED LIST changes: +NITR-87 MT
[2022-06-28 18:32] VITALS: BP 128/90
[2022-06-28 19:21] LABS: BASOPHILS % 0.3 % (0.0-2.0); HEMATOCRIT. 39.3 % (36.0-48.0); HEMOGLOBIN. 13.2 g/dL (12.0-16.0); LYMPHOCYTES % 10.7 % (20.0-50.0); MEAN CORPUSCULAR HEMOGLOBIN 31.8 pg (28.0-32.0); MEAN CORPUSCULAR VOLUME 94.8 fL (81.0-99.0); MEAN PLATELET VOLUME 8.8 fl (7.4-10.4); MONOCYTES % 5.8 % (2.0-8.0); NEUTROPHILS % 83.2 % (40.0-76.0); PLATELET 162 x1000/uL (130-400); RED BLOOD CELL COUNT 4.14 mill/uL (4.2-5.4); RED CELL DISTRIBUTION WIDTH 14.2 % (11.6-14.6)
[2022-06-28 19:27] LABS: CHLORIDE 103 mEq/L (98-107)
[2022-06-28 19:30] LABS: HCG SCREEN NEGATIVE
[2022-06-28 19:36] LABS: ETHANOL BLOOD < 10 mg/dL
[2022-06-28] MEDS ORDERED: DIVA-73 MT (21:31)
== END 2022-06-28 21:48 | disposition home or self-care (01) ==
LOC: ER 18:28
DX: G40.909 Epilepsy, unspecified, not intractable, without status epilepticus (principal)
CPT/HCPCS: 36415; 80053; 80320; 84703; 85025; 99283; G0480